=== PATIENT | female | born 1970 | race Two or more races ===

== ENCOUNTER 2023-10-24 11:09 | Emergency (ER) | payer OTHER ==
[~2023-10-24] VITALS: Ht 157.5 cm; Wt 59.0 kg
[2023-10-24] MEDS ORDERED: ZESTRIL40 M1 (11:22)
[2023-10-24] MEDS ORDERED: FAMOtidine 10 MG/ML (4ML VIAL) IV STA (11:50)
[2023-10-24] MEDS ORDERED: 0.9 % SODIUM CHLORIDE 1,000 ML IV STA (11:51)
[2023-10-24] MEDS ORDERED: ONDANSETRON HCL 2 MG/ML VIAL IV ONE (12:00)
[2023-10-24 13:28] LABS: HEMOGLOBIN 14.9 g/dL (12.0-15.00); MEAN CORPUSCULAR HEMOGLOBIN 30.8 pg (27.00-32.0); MEAN CORPUSCULAR HGB CONC 33.8 g/dl (32.0-36.0); PLATELET COUNT 380 K/uL (150-450); RED BLOOD COUNT 4.83 M/uL (4.00-6.00); RED CELL DISTRIBUTION WIDTH 14.8 % (11.5-14.5)
[2023-10-24 13:32] LABS: URINE APPEARANCE Clear; URINE BILIRRUBIN Negative (NEGATIVE); URINE BLOOD Negative; URINE COLOR Yellow; URINE GLUCOSE Negative (NEGATIVE); URINE LEUKOCYTE Small; URINE NITRATE Negative; URINE PROTEIN Trace (NEGATIVE); URINE UROBILINOGEN 0.2 E.U./dl
[2023-10-24 13:36] LABS: URINE BACTERIA 173.8 uL (0.0-1933); URINE EPITHELIAL CELLS 31.6 uL (0.0-38.8); URINE RBC 11.2 uL (0.0-20.8); URINE WBC 15.4 uL (0.0-23.2)
[2023-10-24 13:50] LABS: CALCIUM 9.5 mg/dL (8.5-10.1); CREATININE SERUM 0.73 mg/dL (0.55-1.02); GFR 83.39; POTASSIUM 4.27 mEq/L (3.5-5.1)
== END 2023-10-24 15:21 | disposition home or self-care (01) ==
LOC: ER 11:09
PROVIDERS: General Practice
DX: K59.89 Other specified functional intestinal disorders (principal)